=== PATIENT | male | born 2000 | race Caucasian/White ===

== ENCOUNTER 2024-01-07 16:06 | Emergency (ER) | payer BC ==
[~2024-01-07] VITALS: Ht 180.3 cm; Wt 75.0 kg
[2024-01-07 16:16] VITALS: TEMP 98
[2024-01-07 17:34] VITALS: BP 100/56; PULSE 60
== END 2024-01-07 17:36 | disposition home or self-care (01) ==
LOC: COL.ER 16:06
DX: M75.22 Bicipital tendinitis, left shoulder (principal); Z87.891 Personal history of nicotine dependence; X50.0XXA Overexertion from strenuous movement or load, initial encounter; Y93.F2 Activity, caregiving, lifting; Y99.0 Civilian activity done for income or pay